=== PATIENT | male | born 1960 | race Caucasian/White ===

== ENCOUNTER → 2016-11-24 | Outpatient (CLI) | payer BC ==
[~2016-11-24] MED LIST: ADULT LOW DOSE81 MG; AMBIEN 10 MG TA10 MG PO; DOXYCYCLINE 10100 MG PO; DULERA 100 MCG/13 GM INH; LITHIUM CARBON300 M3; LITHIUM CARBON300 M7; NEXIUM40 MG PO; OXYGEN MISCELL; PREDNISONE 20 M20 M1 PO; PROVENTIL; SPIRIVA RESPIMAT4 GM IH; THIOTHIXENE10 M1; UNICOMPLEX M TA1 TA1; VENTOLIN HFA 1818 GM INH; ZYPREXA5 MG; ZYPREXA5 MG PO
== END ==
LOC: RAD 09:51
DX: R06.02 Shortness of breath (principal); J18.9 Pneumonia, unspecified organism; J98.11 Atelectasis

== ENCOUNTER → 2017-02-03 | Outpatient (CLI) | payer BC | LOC: RAD 14:26 | DX: J44.1 Chronic obstructive pulmonary disease with (acute) exacerbation (principal); R91.8 Other nonspecific abnormal finding of lung field; J90 Pleural effusion, not elsewhere classified ==

== ENCOUNTER → 2018-08-22 | Outpatient (CLI) | payer BC | LOC: RAD 10:40 | DX: J44.9 Chronic obstructive pulmonary disease, unspecified (principal) ==

== ENCOUNTER → 2019-07-24 | Outpatient (CLI) | payer BC | LOC: RAD 10:29 | DX: J44.9 Chronic obstructive pulmonary disease, unspecified (principal); J98.4 Other disorders of lung ==